=== PATIENT | female | born 1960 | race Caucasian/White ===

== ENCOUNTER → 2018-09-26 | Outpatient (CLI) | payer OTHER ==
[~2018-09-26] MED LIST: NEXIUM40 MG PO
== END ==
LOC: MAMMO 14:23
PROVIDERS: ATTEND Family Medicine
DX: Z12.31 Encounter for screening mammogram for malignant neoplasm of breast (principal)
CPT/HCPCS: 77067

== ENCOUNTER → 2020-08-04 | Outpatient (CLI) | payer OTHER | LOC: MAMMO 10:13 | PROVIDERS: ATTEND Family Medicine | DX: Z12.31 Encounter for screening mammogram for malignant neoplasm of breast (principal) | CPT/HCPCS: 77067 ==

== ENCOUNTER → 2020-08-19 | Outpatient (CLI) | payer OTHER | LOC: MAMMO 08:47 | PROVIDERS: ATTEND Family Medicine | DX: R92.2 Inconclusive mammogram (principal) ==

== ENCOUNTER → 2020-11-09 | Outpatient (CLI) | payer OTHER | LOC: US 13:03 | PROVIDERS: ATTEND Family Medicine | DX: R22.42 Localized swelling, mass and lump, left lower limb (principal) | CPT/HCPCS: 76882 ==

== ENCOUNTER → 2025-01-06 | Outpatient (REF) | payer OTHER | LOC: MAMMO 10:26 | PROVIDERS: ATTEND Family Medicine | DX: Z12.31 Encounter for screening mammogram for malignant neoplasm of breast (principal) | CPT/HCPCS: 77067 ==